=== PATIENT | female | born 1940 | race Caucasian/White ===

== ENCOUNTER 2017-06-23 11:27 | Emergency (ER) | payer OTHER ==
[2017-06-23 13:17] VITALS: BP 174/77
== END 2017-06-23 13:50 | disposition home or self-care (01) ==
LOC: ED 11:27
DX: M79.662 Pain in left lower leg (principal); M79.661 Pain in right lower leg; I10 Essential (primary) hypertension; E11.9 Type 2 diabetes mellitus without complications; G62.9 Polyneuropathy, unspecified; Z79.899 Other long term (current) drug therapy; Z79.84 Long term (current) use of oral hypoglycemic drugs
CPT/HCPCS: 82962; Q0092